=== PATIENT | female | born 2005 | race African-American/Black ===

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

== ENCOUNTER 2023-01-27 21:04 | Emergency (ER) | payer OTHER ==
[~2023-01-27] VITALS: Ht 170.1 cm; Wt 77.1 kg
[~2023-01-27 21:04] MED LIST changes: +AMOX-CLAV 875-1 EACH PO
== END 2023-01-28 00:15 | disposition home or self-care (01) ==
LOC: ED 21:04
DX: J06.9 Acute upper respiratory infection, unspecified (principal); Z20.822 Contact with and (suspected) exposure to COVID-19

== ENCOUNTER 2023-09-30 05:34 | Emergency (ER) | payer OTHER ==
[~2023-09-30] VITALS: Ht 175.2 cm; Wt 86.2 kg
[2023-09-30] MEDS ORDERED: methylPREDNISolone sod succ 125 MG VIAL IM ONE (06:35)
[2023-09-30] MEDS ORDERED: predniSONE 20 MG TAB PO ONE (06:40)
[2023-09-30] MEDS ORDERED: PREDNISONE20 M1 PO (06:41)
== END 2023-09-30 06:47 | disposition home or self-care (01) ==
LOC: ED 05:34
DX: J06.9 Acute upper respiratory infection, unspecified (principal); Z20.822 Contact with and (suspected) exposure to COVID-19; H92.09 Otalgia, unspecified ear; Z79.2 Long term (current) use of antibiotics

== ENCOUNTER → 2024-07-28 | Outpatient (CLI) | payer OTHER | END | disposition home or self-care (01) | LOC: LAB 17:47 | PROVIDERS: ATTEND Nurse Practitioner Family | DX: R30.0 Dysuria (principal) ==